=== PATIENT | female | born 1955 | race Caucasian/White ===

== ENCOUNTER 2021-07-24 17:05 | Inpatient (IN) | payer MEDICARE, MEDICAID ==
[2021-07-24 17:07] VITALS: BMI 26.5
[2021-07-24] MEDS ORDERED: Ondansetron ODT 4 MG TAB PO PRN (18:22)
[2021-07-24] MEDS ORDERED: hydrALAZINE 20 MG/ML VIAL SLOW IVP PRN (18:22)
[2021-07-24] MEDS ORDERED: Ondansetron PF 4 MG/2 ML Vial IVP PRN (18:22)
[2021-07-24] MEDS ORDERED: Acetaminophen 650 MG Suppository PR PRN (18:22)
[2021-07-24] MEDS ORDERED: Acetaminophen 325 MG TAB PO PRN (18:22)
[2021-07-24] MEDS ORDERED: Dextrose 50% Abboject 50 ML SYRINGE SLOW IVP PRN (18:40)
[2021-07-24] MEDS ORDERED: HumaLOG 300 UNITS/3 ML VIAL SC PRN ×2 (18:40)
[2021-07-24] MEDS ORDERED: Dextrose 5% in Water 1,000 ML IV PRN (18:40)
[2021-07-24 19:02] LABS: Hemoglobin 13.1 g/dL (12.0-17.5); Mean Corpuscular HGB CONC 33.7 g/dL (32.0-36.0); Mean Corpuscular Hemoglobin 28.7 pg (27.0-33.0); Mean Corpuscular Volume 85.1 fl (81.2-98.3); Mean Platelet Volume 9.4 fl (7.4-10.4); Platelet Count 214 10x3/uL (150-450); RBC Distribution Width 12.2 % (11.5-14.5); Red Blood Cell (RBC) Count 4.57 10x6/uL (3.90-5.72); White Blood Cell (WBC) Count 5.3 10x3/uL (3.5-10.5)
[2021-07-24 19:17] LABS: ALT (SGPT) 88 U/L (8-55); AST (SGOT) 52 U/L (5-34); Alkaline Phosphatase 90 U/L (40-110); Anion Gap 13 mmol/L (10-20); BUN (Urea Nitrogen) 16 mg/dL (8.4-25.7); Bilirubin, Total 0.8 mg/dL (0.2-1.2); Calcium 9.3 mg/dL (7.8-10.44); Carbon Dioxide 23 mmol/L (23-31); Chloride 103 mmol/L (98-107); Globulin 2.3 g/dL (2.4-3.5); Glucose 93 mg/dL (80-115); Potassium 3.9 mmol/L (3.5-5.1); Protein, Total 6.3 g/dL (5.8-8.1); Sodium 135 mmol/L (136-145)
[2021-07-24 19:22] LABS: Troponin I Less than 0.010 ng/mL (< 0.028)
[2021-07-24 19:26] LABS: Magnesium 1.7 mg/dL (1.6-2.6)
[2021-07-24 19:44] LABS: Band 1 % (5-11); Eosinophils 1 % (0-10); Lymphocytes 58 % (21-51); Monocytes 1 % (0-10); Neutrophil 39 % (42-75)
[2021-07-24 19:45] LABS: MDiff Complete? YES; Platelet Morphology Comment Appears Adequate; RBC Morphology Normal
[2021-07-24] MEDS ORDERED: traMADol HCl 50 MG TAB PO SCH (21:00)
[2021-07-24] MEDS ORDERED: Gabapentin 300 MG CAP PO SCH (21:00)
[2021-07-24] MEDS ORDERED: Atorvastatin Calcium 40 MG TAB PO SCH (21:00)
[2021-07-24] MEDS ORDERED: traZODone HCl 50 MG TAB PO SCH (23:00)
[2021-07-25 05:38] LABS: Anion Gap 15 mmol/L (10-20); BUN (Urea Nitrogen) 17 mg/dL (8.4-25.7); Calcium 9.4 mg/dL (7.8-10.44); Carbon Dioxide 25 mmol/L (23-31); Cardiac Risk 2.4 (Less than 4.5); Chloride 107 mmol/L (98-107); Cholesterol 84 mg/dl (< 200 Desired); Glucose 106 mg/dL (80-115); HDL Cholesterol 35 mg/dL (>60 Neg Risk); LDL Cholesterol, Calculated 32 mg/dL; Potassium 3.7 mmol/L (3.5-5.1); Sodium 143 mmol/L (136-145); Triglycerides 85 mg/dL (Less than 150)
[2021-07-25 05:41] LABS: Hemoglobin 13.4 g/dL (12.0-17.5); Mean Corpuscular HGB CONC 33.7 g/dL (32.0-36.0); Mean Corpuscular Hemoglobin 28.5 pg (27.0-33.0); Mean Corpuscular Volume 84.5 fl (81.2-98.3); Mean Platelet Volume 9.5 fl (7.4-10.4); Platelet Count 213 10x3/uL (150-450); RBC Distribution Width 12.1 % (11.5-14.5); Red Blood Cell (RBC) Count 4.71 10x6/uL (3.90-5.72); White Blood Cell (WBC) Count 6.1 10x3/uL (3.5-10.5)
[2021-07-25 05:54] LABS: Syphilis Antibody Nonreactive (Nonreactive); Syphilis Antibody Index 0.07 S/CO (<1.00 Non-Reactive)
[2021-07-25 06:48] LABS: MDiff Complete? YES
[2021-07-25 06:52] LABS: Eosinophils 3 % (0-10); Lymphocytes 65 % (21-51); Monocytes 8 % (0-10); Neutrophil 24 % (42-75)
[2021-07-25 06:55] LABS: Platelet Morphology Comment Appears Adequate; RBC Morphology Normal
[2021-07-25] MEDS ORDERED: Levothyroxine Sodium 50 MCG TAB PO SCH (07:30)
[2021-07-25] MEDS ORDERED: Gabapentin 300 MG CAP PO SCH ×2 (09:00→21:00)
[2021-07-25] MEDS ORDERED: Aspirin 81 mg Enteric Coated Tablet PO SCH (09:00)
[2021-07-25] MEDS ORDERED: Potassium Chloride 20 MEQ TAB PO SCH (09:00)
[2021-07-25] MEDS ORDERED: Lisinopril 5 MG TAB PO SCH (09:00)
[2021-07-25] MEDS ORDERED: Sodium Chloride 0.9% 1,000 ML IV SCH (12:00)
[2021-07-25 12:18] LABS: SARS-CoV-2 PCR by NAA Not Detected (NotDetected)
[2021-07-25 12:43] LABS: Hemoglobin A1c 6.3 % (4.0-6.0)
[2021-07-25] MEDS ORDERED: hydrOXYzine 25 MG TAB PO PRN (12:48)
[2021-07-25] MEDS ORDERED: Polyvinyl Alcohol 1.4%/Povidone 0.6% Opth Drops R EYE SCH (13:00)
[2021-07-25] MEDS ORDERED: Artificial Tear Sol 15 ML BOT R EYE SCH (13:00)
[2021-07-25] MEDS ORDERED: valACYclovir 500 MG TAB PO SCH ×2 (17:15→21:00)
[2021-07-25 17:28] VITALS: BP 125/67; TEMP 98.1
[2021-07-26] MEDS ORDERED: Levothyroxine Sodium 50 MCG TAB PO SCH (06:00)
[2021-07-26] MEDS ORDERED: Bupropion 150 MG XL TAB PO SCH (09:00)
== END 2021-07-25 18:18 | disposition home or self-care (01) | DRG 74 ==
LOC: EDSEX 17:05 → CSHTELE 17:05
PROVIDERS: ADMIT Emergency Medicine; ATTEND Family Medicine
DX: G51.0 Bell's palsy (principal); I10 Essential (primary) hypertension; E78.5 Hyperlipidemia, unspecified; E11.9 Type 2 diabetes mellitus without complications; F20.9 Schizophrenia, unspecified; J44.9 Chronic obstructive pulmonary disease, unspecified; E03.9 Hypothyroidism, unspecified; Z20.822 Contact with and (suspected) exposure to COVID-19; G47.00 Insomnia, unspecified; Z88.0 Allergy status to penicillin; Z88.1 Allergy status to other antibiotic agents; Z88.5 Allergy status to narcotic agent; Z88.8 Allergy status to other drugs, medicaments and biological substances; Z79.899 Other long term (current) drug therapy; Z90.49 Acquired absence of other specified parts of digestive tract; Z90.710 Acquired absence of both cervix and uterus
CPT/HCPCS: 36415; 36416; 70551; 80048; 80053; 80061; 83036; 83735; 84443; 84484; 85025; 86780; 93306; J7050; U0003; U0005

== ENCOUNTER → 2023-08-13 | Emergency (ER) | payer MEDICARE, OTHER ==
[2023-08-13 10:36] LABS: Hematocrit 37.7 % (34.9-44.5); Hemoglobin 12.7 g/dL (12.0-15.5); Mean Corpuscular HGB CONC 33.7 g/dL (32.0-36.0); Mean Corpuscular Hemoglobin 29.1 pg (27.0-33.0); Mean Corpuscular Volume 86.5 fl (81.6-98.3); Mean Platelet Volume 9.6 fl (7.4-10.4); Platelet Count 214 10x3/uL (150-450); RBC Distribution Width 14.8 % (11.5-14.5); Red Blood Cell (RBC) Count 4.36 10x6/uL (3.90-5.03); White Blood Cell (WBC) Count 7.5 10x3/uL (3.5-10.5)
[2023-08-13 10:45] LABS: MDiff Complete? YES
[2023-08-13 10:51] LABS: Acetaminophen Less than 10 mcg/mL (10.0-30.0); Alcohol Less than 10.0 mg/dL (Less than 10); Salicylate Less than 8.0 mg/dL (15.0-30.0)
[2023-08-13 11:03] LABS: ALT (SGPT) 45 U/L (8-55); AST (SGOT) 68 U/L (5-34); Albumin 3.8 g/dL (3.4-4.8); Alkaline Phosphatase 92 U/L (40-110); Anion Gap 20 mmol/L (10-20); BUN (Urea Nitrogen) 28 mg/dL (9.8-20.1); Bilirubin, Total 1.4 mg/dL (0.2-1.2); Calc. Creatinine Clearance 0 mL/min (70-130); Calcium 9.5 mg/dL (7.8-10.44); Carbon Dioxide 21 mmol/L (23-31); Chloride 104 mmol/L (98-107); Estimated GFR 80; Globulin 2.9 g/dL (2.4-3.5); Glucose 108 mg/dL (80-115); Potassium 3.1 mmol/L (3.5-5.1); Protein, Total 6.7 g/dL (5.8-8.1); Sodium 142 mmol/L (136-145)
[2023-08-13 11:14] LABS: Band 2 % (5-11); Eosinophils 1 % (0-10); Lymphocytes 29 % (21-51); Monocytes 6 % (0-10); Neutrophil 62 % (42-75)
[2023-08-13 11:15] LABS: Platelet Adequacy Comment Appears Adequate; RBC Morph Comment Within Normal Limits
== END ==
LOC: EEVIPCON 10:00 → CSHERS 10:00
DX: F23 Brief psychotic disorder (principal); I10 Essential (primary) hypertension; E11.9 Type 2 diabetes mellitus without complications; F17.290 Nicotine dependence, other tobacco product, uncomplicated; Z79.899 Other long term (current) drug therapy
CPT/HCPCS: 36415; 80053; 80307; 84443; 85025; 93005

== ENCOUNTER 2023-10-04 14:23 | Emergency (ER) | payer OTHER ==
[~2023-10-04 14:23] MED LIST: Iopamidol 300 61% 100 ML VIAL FS ONE
[2023-10-04] MEDS ORDERED: Ondansetron PF 4 MG/2 ML Vial ONE (14:46)
[2023-10-04] MEDS ORDERED: Pantoprazole 40 MG VIAL ONE (14:46)
[2023-10-04] MEDS ORDERED: Octreotide Acetate 50 MCG/ML AMP ONE (14:47)
[2023-10-04 14:48] LABS: #Basophils 0.02 10x3/uL (0.0-0.2); #Eosinphils 0.05 10x3/uL (0.0-0.5); #Monocytes 0.71 10x3/uL (0.0-1.1); #Neutrophils 5.44 10x3/uL (1.5-8.4); %Basophils 0.3 % (0.0-2.0); %Eosinophils 0.7 % (0.0-6.0); %Lymphocytes 14.8 % (18.0-47.0); %Monocytes 9.7 % (0.0-10.0); %Neutrophils 74.2 % (40.0-75.0); Hematocrit 26.1 % (34.9-44.5); Hemoglobin 8.7 g/dL (12.0-15.5); Mean Corpuscular HGB CONC 33.3 g/dL (32.0-36.0); Mean Platelet Volume 10.1 fL (7.4-10.4); Platelet Count 148 10x3/uL (150-450); RBC Distribution Width 16.1 % (11.5-14.5); White Blood Cell (WBC) Count 7.3 10x3/uL (3.5-10.5)
[2023-10-04 14:58] LABS: INR-International Normal Ratio 1.1; Prothrombin Time 12.1 sec (9.5-12.1)
[2023-10-04] MEDS ORDERED: Pantoprazole 80 MG, Admixture Fee 1 EACH in Sodium Chloride 0.9% 100 ML IVPB SCH (15:00)
[2023-10-04 15:06] LABS: ALT (SGPT) 31 U/L (8-55); AST (SGOT) 47 U/L (5-34); Albumin 2.3 g/dL (3.4-4.8); Alkaline Phosphatase 146 U/L (40-110); Anion Gap 10 mmol/L (10-20); BUN (Urea Nitrogen) 54 mg/dL (9.8-20.1); Bilirubin, Total 0.3 mg/dL (0.2-1.2); Calc. Creatinine Clearance 0 mL/min (70-130); Carbon Dioxide 15 mmol/L (23-31); Chloride 121 mmol/L (98-107); Estimated GFR 44; Globulin 1.5 g/dL (2.4-3.5); Glucose 115 mg/dL (80-115); Potassium 3.9 mmol/L (3.5-5.1); Protein, Total 3.8 g/dL (5.8-8.1); Sodium 142 mmol/L (136-145)
[2023-10-04 15:07] LABS: Troponin I Less than 0.010 ng/mL (< 0.028)
[2023-10-04 15:08] LABS: Acetaminophen Less than 10 mcg/mL (10.0-30.0); Alcohol Less than 10.0 mg/dL (Less than 10); Calcium 6.7 mg/dL (7.8-10.44); Salicylate Less than 8.0 mg/dL (15.0-30.0)
[2023-10-04] MEDS ORDERED: Calcium Chloride 1 GM/10 ML Abboject SYRINGE ONE (15:13)
[2023-10-04] MEDS ORDERED: Octreotide Acetate 1,250 MCG in Sodium Chloride 0.9% 250 ML 250 ML IVPB SCH (15:30)
== END 2023-10-04 16:48 | disposition short-term general hospital (02) ==
LOC: CSHERS 14:23
DX: K92.2 Gastrointestinal hemorrhage, unspecified (principal); E83.51 Hypocalcemia; I95.9 Hypotension, unspecified; I10 Essential (primary) hypertension; E11.9 Type 2 diabetes mellitus without complications; F17.290 Nicotine dependence, other tobacco product, uncomplicated
CPT/HCPCS: 36430; 71045; 74177; 80053; 80307; 83880; 84484; 85025; 85610; 85730; 86850; 86900; 86901; 86920; 93005; C9113; J2354; J2405; J3490; J7050; P9016; P9040; Q9967; 96365; 96374; 96375